=== PATIENT | male | born 1990 | race Hispanic/Latino ===

== ENCOUNTER 2018-02-03 19:48 | Emergency (ER) | payer BC ==
[2018-02-03] MEDS ORDERED: Sodium Chloride 0.9% 1,000 ML IV STA (21:15)
[2018-02-03 21:37] LABS: BASO # 0.1 K/uL (0.0-0.2); BASO % 0.6 % (0.0-2.0); EOS # 0.1 K/uL (0.0-0.7); EOS % 1.8 % (0.0-4.0); LYMPH # 2.5 K/uL (1.0-4.3); LYMPH % 30.4 % (20.0-40.0); MEAN CELL VOLUME 87.7 fl (80.0-94.0); MEAN CORPUSCULAR HEMOGLOBIN 30.6 pg (27.0-31.0); MEAN CORPUSCULAR HGB CONC 34.8 g/dL (33.0-37.0); MEAN PLATELET VOLUME 8.1 fl (7.2-11.7); MONO # 0.9 K/uL (0.0-0.8); MONO % 10.5 % (0.0-10.0); NEUT # 4.7 K/uL (1.8-7.0); NEUT % 56.7 % (50.0-75.0); NRBC % 0.2 % (0.0-0.0); RBC 5.23 Mil/uL (4.40-5.90); RED CELL DISTRIBUTION WIDTH 12.8 % (11.5-14.5); WHITE BLOOD COUNT 8.4 K/uL (4.8-10.8)
[2018-02-03 21:48] LABS: ALB/GLOB RATIO 1.4 (1.0-2.1); ALBUMIN 4.6 g/dL (3.5-5.0); ALT/SGPT 75 U/L (21-72); AST/SGOT 52 U/L (17-59); BLOOD UREA NITROGEN 16 mg/dl (9-20); GFR AFRICAN-AMERICAN > 60; GFR NON-AFRICAN AMERICAN > 60; LIPASE 96 U/L (23-300)
[2018-02-03] MEDS ORDERED: Iohexol 300 100 ML IJ ONE (22:16)
[2018-02-03] MEDS ORDERED: Sodium Chloride 0.9% 100 ML ONE (22:16)
--- NOTE | 2018-02-03 22:17 | ED PDOC ---
Syncope/Near Syncope/Dizziness Time Seen by Provider: 02/03/18 20:56 Chief Complaint (Nursing): Syncope Chief Complaint (Provider): syncope History Per: Patient History/Exam Limitations: no limitations Additional Complaint(s): Pt had syncopal episode while getting out of a car. He had abdominal cramp at the same time. Reports that the abdominal cramps have occurred in the past, ongoing for about a year, but occurring with somewhat increasing frequency, at least 2x/week. Especially with abdominal exercise. Never associated with fainting until today. Recently had ventral hernia surgery 6 months ago. No nausea, vomtiing, diarrhea, constipation. PMD in [facility] Past Medical History Reviewed: Historical Data, Nursing Documentation, Vital Signs Vital Signs: Last Vital Signs Temp 98 F 02/03/18 20:48 Pulse 70 02/03/18 20:48 Resp 18 02/03/18 20:48 BP 136/82 02/03/18 20:48 Pulse Ox 100 02/03/18 20:48 - Medical History PMH: No Chronic Diseases - Surgical History Surgical History: Hernia Repair - Family History Family History: States: No Known Family Hx - Social History Current smoker - smoking cessation education provided: No Alcohol: Occasional - Allergies Allergies/Adverse Reactions: Allergies Allergy/AdvReac Type Severity Reaction Status Date / Time Penicillins Allergy Verified 02/03/18 21:14 Review of Systems ROS Statement: Except As Marked, All Systems Reviewed And Found Negative (and as per HPI) Cardiovascular: Positive for: Light Headedness Gastrointestinal: Positive for: Abdominal Pain Physical Exam - Reviewed Nursing Documentation Reviewed: Yes Vital Signs Reviewed: Yes - Physical Exam Appears: Positive for: Non-toxic, No Acute Distress Head Exam: Positive for: ATRAUMATIC, NORMOCEPHALIC Skin: Positive for: Warm, Dry Eye Exam: Positive for: EOMI, PERRL ENT: Negative for: Pharyngeal Erythema, Tonsillar Exudate Neck: Positive for: Painless ROM, Supple Cardiovascular/Chest: Positive for: Regular Rate, Rhythm. Negative for: Murmur Respiratory: Positive for: Normal Breath Sounds. Negative for: Wheezing Gastrointestinal/Abdominal: Positive for: Soft. Negative for: Tenderness, Mass , Distended, Guarding, Rebound Back: Positive for: Normal Inspection. Negative for: Decreased ROM Extremity: Positive for: Normal ROM. Negative for: Deformity Lymphatic: Negative for: Adenopathy Neurologic/Psych: Positive for: Alert, Oriented. Negative for: Motor/Sensory Deficits - Laboratory Results Result Diagrams: 02/03/18 21:28 02/03/18 21:28 - ECG ECG: Positive for: Interpreted By Me ECG Rhythm: Positive for: Normal QRS, Normal ST Segment, Sinus Rhythm O2 Sat by Pulse Oximetry: 100 Pulse Ox Interpretation: Normal Medical Decision Making Medical Decision Makinyo healthy man with progressive episodes of abdominal cramping, suddenly associate with syncope. Ddx: Muscle spasm, gastritis, gallbladder disease, intermittent mesenteric ischemia, vasovagal syncope. 2316 CTA A/P FINDINGS: Lung bases: There is minimal bibasilar atelectasis. ABDOMEN: Liver: Unremarkable. No mass. Gallbladder and bile ducts: Unremarkable. No calcified stones. No ductal dilation. Pancreas: Unremarkable. No mass. No ductal dilation. Spleen: Unremarkable. No splenomegaly. Adrenals: Unremarkable. No mass. Kidneys and ureters: Unremarkable. No solid mass. No hydronephrosis. Stomach and bowel: Unremarkable. No obstruction. No mucosal thickening. PELVIS: Appendix: A normal appendix is identified. Bladder: Unremarkable. No mass. Reproductive: Unremarkable as visualized. ABDOMEN and PELVIS: Intraperitoneal space: Unremarkable. No free air. No significant fluid collection. Bones/joints: No acute fracture. No dislocation. Soft tissues: Unremarkable. Vasculature: Unremarkable. No abdominal aortic aneurysm. Lymph nodes: Unremarkable. No enlarged lymph nodes. IMPRESSION: No evidence of an acute intra-abdominal or pelvic abnormality. Pt with minor hypokalemia otherwise normal labs. DW pt findings and need to increase potassium-rich foods. In setting of normal lab and EKG findings, this patient is stable to go home and follow up with PMD/GI for further workup. Fainting precautions given. Disposition - Clinical Impression Clinical Impression: Syncope, Abdominal pain Counseled Patient/Family Regarding: Studies Performed, Diagnosis, Need For Followup - Disposition Referrals: Jessica Hoyt [Outside] - 02/04/18 Disposition: Routine/Home Disposition Time: 23:00 Condition: STABLE Additional Instructions: DRINK PLENTY OF HYDRATING FLUID AND REST FOLLOW UP WITH [facility] TOMORROW FOR REEVALUATION AND TO ARRANGE FOLLOWUP APPOINTMENTS WITH A PRIMARY CARE DOCTOR AND ANY SPECIALISTS IF NECESSARY Instructions: Syncope (Fainting), Acute Abdomen (Belly Pain) Forms: [facility] ED School/Work Excuse
--- NOTE | 2018-02-03 23:16 | CT ---
EXAM: CT Abdomen and Pelvis With Intravenous Contrast CLINICAL HISTORY: 27 years old, male; Pain; Abdominal pain; Localized; Upper; Prior surgery; Surgery date: 1-6 months; Surgery type: Ventral hernia repair; Additional info: Syncope abd pain TECHNIQUE: Axial computed tomography images of the abdomen and pelvis with intravenous contrast. All CT scans at this facility use one or more dose reduction techniques, viz.: automated exposure control; ma/kV adjustment per patient size (including targeted exams where dose is matched to indication; i.e. head); or iterative reconstruction technique. Coronal and sagittal reformatted images were created and reviewed. CONTRAST: 95 mL of [id number] administered intravenously. COMPARISON: No relevant prior studies available. FINDINGS: Lung bases: There is minimal bibasilar atelectasis. ABDOMEN: Liver: Unremarkable. No mass. Gallbladder and bile ducts: Unremarkable. No calcified stones. No ductal dilation. Pancreas: Unremarkable. No mass. No ductal dilation. Spleen: Unremarkable. No splenomegaly. Adrenals: Unremarkable. No mass. Kidneys and ureters: Unremarkable. No solid mass. No hydronephrosis. Stomach and bowel: Unremarkable. No obstruction. No mucosal thickening. PELVIS: Appendix: A normal appendix is identified. Bladder: Unremarkable. No mass. Reproductive: Unremarkable as visualized. ABDOMEN and PELVIS: Intraperitoneal space: Unremarkable. No free air. No significant fluid collection. Bones/joints: No acute fracture. No dislocation. Soft tissues: Unremarkable. Vasculature: Unremarkable. No abdominal aortic aneurysm. Lymph nodes: Unremarkable. No enlarged lymph nodes. IMPRESSION: No evidence of an acute intra-abdominal or pelvic abnormality.
[2018-02-04 00:19] VITALS: BP 129/78; PULSE 82; RESP 16; TEMP 98.1
[2018-02-04 14:43] VITALS: O2SAT 100
--- NOTE | 2018-02-04 18:01 | CARD ---
APPROVED REPORT EKG Measurement Heart [id number] <Conclusion> Sinus rhythm with premature atrial complexes Otherwise normal ECG
== END 2018-02-04 00:19 | disposition home or self-care (01) ==
LOC: H.ER 19:48
DX: R55 Syncope and collapse (principal); R10.9 Unspecified abdominal pain
CPT/HCPCS: 74177; 80053; 83605; 83690; 83735; 84100; 85025; 93005; 96360; 99285; J7040; Q9967